=== PATIENT | male | born 1985 | race Hispanic/Latino ===

== ENCOUNTER 2017-02-06 14:28 | Emergency (ER) | payer BC ==
[2017-02-06] MEDS ORDERED: predniSONE 20 MG TAB ONE (15:05)
== END 2017-02-06 15:16 | disposition home or self-care (01) ==
LOC: SCSER 14:28
DX: K51.90 Ulcerative colitis, unspecified, without complications (principal); G47.30 Sleep apnea, unspecified; Z79.899 Other long term (current) drug therapy
CPT/HCPCS: 99283; J7506

== ENCOUNTER 2018-10-24 13:03 | Outpatient (CLI) | payer BC | END 2018-10-24 13:04 | disposition home or self-care (01) | PROVIDERS: ATTEND Nurse Practitioner Adult Health | DX: R06.02 Shortness of breath (principal); G47.30 Sleep apnea, unspecified | CPT/HCPCS: 93017 ==